=== PATIENT | male | born 2000 | race Caucasian/White ===

== ENCOUNTER 2022-09-02 17:05 | Emergency (ER) | payer OTHER ==
[2022-09-02] MEDS ORDERED: AMOX TR/POT CLAV 875MG/125MG TABLETS (FP) PO ONE (17:09)
[2022-09-02] MEDS ORDERED: DIPHTH,PERTUSS(ACELL),TET 0.5 ML DISP.SYRIN IM ONE ×2 (17:10→17:32)
[2022-09-02 17:27] VITALS: BP 137/84; PULSE 86; RESP 18; TEMP 98.2; BMI 35.9
[2022-09-02] MEDS ORDERED: AMOX TR/POT CLAV 875MG/125MG TABLETS (FP) ONE (17:32)
== END 2022-09-02 18:00 | disposition home or self-care (01) ==
LOC: FER 17:05
PROC: 3E0234Z Introduction of Serum, Toxoid and Vaccine into Muscle, Percutaneous Approach (ICD-10-PCS; principal; 2022-09-02)
DX: S51.832A Puncture wound without foreign body of left forearm, initial encounter (principal); W50.3XXA Accidental bite by another person, initial encounter
CPT/HCPCS: 90715; 99284-25

== ENCOUNTER 2023-03-10 13:33 | Emergency (ER) | payer OTHER ==
[2023-03-10] MEDS ORDERED: ACETAMINOPHEN 500 MG TABLET (FP) PO ONE (13:49)
[2023-03-10] MEDS ORDERED: LIDOCAINE 5% TOPICAL PATCH TP ONE (13:49)
[2023-03-10] MEDS ORDERED: KETOROLAC TROMETHAMINE 30 MG/1 ML VIAL IM ONE (13:49)
[2023-03-10] MEDS ORDERED: LIDOCAINE 5% TOPICAL PATCH ONE (13:54)
[2023-03-10] MEDS ORDERED: KETOROLAC TROMETHAMINE 30 MG/1 ML VIAL ONE (13:54)
[2023-03-10] MEDS ORDERED: ACETAMINOPHEN 325 MG TABLET (FP) ONE (13:54)
[2023-03-10 13:59] VITALS: BP 138/78; PULSE 76; RESP 16; TEMP 98.6; BMI 36.2
[2023-03-10] MEDS ORDERED: LIDOCAINE PATCH REMOVAL MC SCH (22:00)
== END 2023-03-10 14:40 | disposition home or self-care (01) ==
LOC: FER 13:33
PROC: 3E0233Z Introduction of Anti-inflammatory into Muscle, Percutaneous Approach (ICD-10-PCS; principal; 2023-03-10)
DX: M54.6 Pain in thoracic spine (principal); M79.601 Pain in right arm; Y04.8XXA Assault by other bodily force, initial encounter; Y99.0 Civilian activity done for income or pay
CPT/HCPCS: 99284-25

== ENCOUNTER 2023-06-02 08:26 | Emergency (ER) | payer OTHER ==
[2023-06-02 08:38] VITALS: BP 125/84; PULSE 76; RESP 16; TEMP 98.4; BMI 29.9
[2023-06-02 09:08] LABS: HEMATOCRIT 42.6 % (35.4-49); HEMOGLOBIN 13.8 G/dL (11.7-16.9); MCH 28.3 pg (25.7-33.7); MCHC 32.4 g/dl (32.0-35.9); MEAN CELL VOLUME 87.2 fl (80-96); MEAN PLT VOLUME 8.3 fl (7.5-11.1); PLATELET COUNT 301.6 10^3/uL (134-434); RBC 4.88 10^6/uL (4.00-5.60); WHITE BLOOD COUNT 8.2 10^3/uL (4.0-10.8)
[2023-06-02 09:11] LABS: PLATELET ESTIMATE ADEQUATE
[2023-06-02 09:17] LABS: ALBUMIN 4.1 g/dl (3.4-5.0); BILIRUBIN,TOTAL 0.5 mg/dl (0.2-1); CALCIUM 9.3 mg/dl (8.5-10.1); CREATININE 0.8 mg/dl (0.6-1.3); POTASSIUM 4.1 mmol/L (3.5-5.1); TOT PROT 6.9 g/dl (6.4-8.2)
== END 2023-06-02 10:07 | disposition home or self-care (01) ==
LOC: FER 08:26
DX: R10.10 Upper abdominal pain, unspecified (principal); K59.00 Constipation, unspecified
CPT/HCPCS: 36415; 76705-TC; 80053; 85027; 99284-25

== ENCOUNTER 2023-08-25 16:08 | Emergency (ER) | payer OTHER ==
[2023-08-25] MEDS ORDERED: ACETAMINOPHEN 1000 MG/100 ML BAG IVPB ONE (16:14)
[2023-08-25] MEDS ORDERED: LACTATED RINGERS SOLUTION 1000 ML INFUS.BAG IV ONE (16:15)
[2023-08-25 16:27] VITALS: TEMP 99.5; BMI 35.3
[2023-08-25] MEDS ORDERED: KETOROLAC TROMETHAMINE 15 MG/ML VIAL IVPUSH ONE (18:09)
[2023-08-25] MEDS ORDERED: KETOROLAC TROMETHAMINE 15 MG/ML VIAL ONE (18:14)
[2023-08-25 18:19] VITALS: BP 119/66; PULSE 98; RESP 16
== END 2023-08-25 18:20 | disposition home or self-care (01) ==
LOC: FER 16:08
PROC: 3E033NZ Introduction of Analgesics, Hypnotics, Sedatives into Peripheral Vein, Percutaneous Approach (ICD-10-PCS; principal; 2023-08-25)
PROC: 3E0333Z Introduction of Anti-inflammatory into Peripheral Vein, Percutaneous Approach (ICD-10-PCS; 2023-08-25)
DX: J06.9 Acute upper respiratory infection, unspecified (principal); R07.0 Pain in throat; M79.10 Myalgia, unspecified site; R50.9 Fever, unspecified; R19.7 Diarrhea, unspecified; R63.0 Anorexia; R05.9 Cough, unspecified; E86.0 Dehydration; J34.89 Other specified disorders of nose and nasal sinuses; Z20.822 Contact with and (suspected) exposure to COVID-19
CPT/HCPCS: 0241U-QW; 87651; 96374; 96375; 99284-25

== ENCOUNTER 2023-12-13 17:11 | Emergency (ER) | payer SELFPAY ==
[2023-12-13 17:19] VITALS: BP 129/75; PULSE 76; RESP 16; TEMP 98.9; BMI 35.3
[2023-12-13] MEDS ORDERED: KETOROLAC TROMETHAMINE 30 MG/1 ML VIAL ONE (17:19)
[2023-12-13] MEDS: KETOROLAC TROMETHAMINE 30 MG/1 ML VIAL IM ONE (17:23)
== END 2023-12-13 18:00 | disposition home or self-care (01) ==
LOC: FER 17:11
PROC: 3E023GC Introduction of Other Therapeutic Substance into Muscle, Percutaneous Approach (ICD-10-PCS; principal; 2023-12-13)
DX: M54.2 Cervicalgia (principal); X50.0XXA Overexertion from strenuous movement or load, initial encounter; Y99.0 Civilian activity done for income or pay
CPT/HCPCS: 99284-25